=== PATIENT | female | born 1955 | race Caucasian/White ===

== ENCOUNTER → 2017-12-29 08:43 | Outpatient (POV) | payer BC, SELFPAY | PROVIDERS: Visit Provider Physician Assistant | DX: Z00.00 Encounter for general adult medical examination without abnormal findings (principal) ==

== ENCOUNTER → 2017-12-31 15:53 | Outpatient (CLI) | payer OTHER, SELFPAY ==
[2017-12-31 16:16] LABS: Basophils % 0.4 % (0.1-2.0); Eosinophils # 0.1 K/mm3 (0.0-0.4); Hematocrit 39.2 % (37.0-47.0); Hemoglobin 13.4 g/dL (12.2-16.2); Lymphocytes # 2.1 K/mm3 (0.7-4.5); Mean Corpuscular HGB Conc 34.2 g/dL (31.8-35.4); Mean Corpuscular Hemoglobin 29.5 pg (27.0-31.2); Mean Corpuscular Volume 86.1 fl (81-99); Mean Platelet Volume 8.8 fl (7.4-10.4); Monocytes # 0.3 K/mm3 (0.1-1.0); Monocytes % 4.6 % (1.7-9.3); Platelet Count 158 K/mm3 (142-424); Red Blood Count 4.56 M/mm3 (4.20-5.40); Red Cell Distribution Width 13.2 % (11.5-17.5); White Blood Count 6.6 K/mm3 (4.8-10.8)
--- NOTE | 2017-12-31 16:17 | XR_ITS ---
XR chest 2V HISTORY: ITS.REASON: HTN, ORDERING PHYSICIAN: Matias Cruz MD PATIENT AGE: 62 years COMPARISON: 03/05/2013 FINDINGS: Unremarkable cardiovascular structures. The right hemidiaphragm is elevated. No lobar consolidation or collapse. No acute bony anomalies. IMPRESSION: Elevated right hemidiaphragm, no change with no acute finding
[2017-12-31 19:32] LABS: Alanine Aminotransferase 116 U/L (12-78); Albumin/Globulin Ratio 1.3 (1.1-1.8); Alkaline Phosphatase 79 U/L (46-116); Aspartate Amino Transferase 93 U/L (15-37); Bilirubin,Total 0.7 mg/dL (0.2-1.0); Blood Urea Nitrogen 27 mg/dL (7-18); Calcium 9.8 mg/dL (8.5-10.1); Carbon Dioxide 25 mmol/L (21.0-32.0); Chloride 102 mmol/L (98-107); Creatinine,Serum 0.92 mg/dL (0.55-1.02); Estimated Glomerular Filt Rate 61 ml/min (>60); GFR (African American) 74 ML/MIN (>60); Globulin 3.2 gm/dl (1.3-3.2); Glucose 106 mg/dL (74-106); Sodium 137 mmol/L (136-145); Total Protein,Serum 7.2 gm/dL (6.4-8.2)
== END ==
PROVIDERS: Visit Provider Orthopaedic Surgery
DX: S82.032A Displaced transverse fracture of left patella, initial encounter for closed fracture (principal); S42.465A Nondisplaced fracture of medial condyle of left humerus, initial encounter for closed fracture; S62.619A Displaced fracture of proximal phalanx of unspecified finger, initial encounter for closed fracture; Z01.818 Encounter for other preprocedural examination
CPT/HCPCS: 36415; 71046; 80053; 85025; 93005

== ENCOUNTER → 2018-01-21 14:23 | Outpatient (CLI) | payer OTHER, SELFPAY ==
--- NOTE | 2018-01-21 14:27 | XR_ITS ---
XR knee LT 2V HISTORY: Follow-up fracture/ORIF ITS.REASON: 2 week post op LEFT PATELLA ORIF ORDERING PHYSICIAN: Matias Cruz MD PATIENT AGE: 62 years COMPARISON: None FINDINGS: Anterior bone plate is present over the patella with multiple screws stabilizing the previously noted transverse patellar fracture. There is good alignment with no significant displacement. There has been improvement in the distraction compared to the previous exam. IMPRESSION: Status post ORIF patellar fracture with good alignment and improvement in distraction
== END ==
PROVIDERS: PCP Family Medicine; Visit Provider Orthopaedic Surgery
DX: Z48.89 Encounter for other specified surgical aftercare (principal); S82.002A Unspecified fracture of left patella, initial encounter for closed fracture
CPT/HCPCS: 73560

== ENCOUNTER 2018-01-21 15:45 | Outpatient (RCR) | payer OTHER, SELFPAY | END 2018-01-22 08:27 | disposition home or self-care (01) | LOC: PT 15:45 | PROVIDERS: Visit Provider Orthopaedic Surgery | DX: S82.009A Unspecified fracture of unspecified patella, initial encounter for closed fracture (principal) | CPT/HCPCS: 97760 ==

== ENCOUNTER → 2018-02-04 14:20 | Outpatient (CLI) | payer OTHER, SELFPAY ==
--- NOTE | 2018-02-04 14:26 | XR_ITS ---
XR finger LT min 2V CLINICAL INDICATION: Follow-up fracture ITS.REASON: LT ring finger/ sp lt ring finger closed reduction ORDERING PHYSICIAN: Matias Cruz MD PATIENT AGE: 62 years Comparison: 12/31/2017 FINDINGS: There is comminuted fracture involving the proximal phalanx of the fourth finger nondisplaced. Fracture line is still visible along the radial aspect and proximally. There remains good alignment IMPRESSION: Overall no change nondisplaced comminuted fracture proximal phalanx fourth digit
== END ==
PROVIDERS: PCP Family Medicine; Visit Provider Orthopaedic Surgery
DX: S62.609A Fracture of unspecified phalanx of unspecified finger, initial encounter for closed fracture (principal); Z48.89 Encounter for other specified surgical aftercare
CPT/HCPCS: 73140

== ENCOUNTER → 2018-02-18 13:22 | Outpatient (CLI) | payer OTHER, SELFPAY ==
--- NOTE | 2018-02-18 13:26 | XR_ITS ---
XR knee LT 2V HISTORY: ITS.REASON: nonweightbearing/ sp ORIF lt patella 01/06/18 ORDERING PHYSICIAN: Matias Cruz MD PATIENT AGE: 62 years COMPARISON: 01/21/2018 FINDINGS: Status post ORIF patella with anterior bone plate with multiple screws in place. The fracture line of the patella is somewhat less apparent indicating healing. There are mild osteoarthritic changes of the medial compartment. IMPRESSION: Healing nondisplaced fracture of the patella status post ORIF
== END ==
PROVIDERS: PCP Family Medicine; Visit Provider Orthopaedic Surgery
DX: Z09 Encounter for follow-up examination after completed treatment for conditions other than malignant neoplasm (principal)
CPT/HCPCS: 73560

== ENCOUNTER → 2018-04-01 09:56 | Outpatient (CLI) | payer OTHER, SELFPAY ==
--- NOTE | 2018-04-01 10:00 | XR_ITS ---
XR knee LT 2V HISTORY: Follow-up fracture/ORIF ITS.REASON: sp ORIF left patella 01/06/18 ORDERING PHYSICIAN: Matias Cruz MD PATIENT AGE: 63 years COMPARISON: 02/18/2018 FINDINGS: Status post ORIF of the patella with a bone plate present anteriorly with good alignment of the fracture fragments and no significant distraction. Fracture line may be slightly less apparent than when compared to the previous exam. IMPRESSION: Status post ORIF patellar fracture with good alignment
--- NOTE | 2018-04-01 10:00 | XR_ITS ---
XR finger LT min 2V CLINICAL INDICATION: Follow-up fracture and closed reduction ITS.REASON: sp closed reduction 01/06/18 ORDERING PHYSICIAN: Matias Cruz MD PATIENT AGE: 63 years Comparison: 02/04/2018 FINDINGS: Comminuted fracture of the proximal phalanx of the ring finger is less apparent. There remains good alignment. IMPRESSION: Healing fracture proximal phalanx fourth digit with good alignment
== END ==
PROVIDERS: PCP Family Medicine; Visit Provider Orthopaedic Surgery
DX: S62.602A Fracture of unspecified phalanx of right middle finger, initial encounter for closed fracture (principal); S82.002A Unspecified fracture of left patella, initial encounter for closed fracture
CPT/HCPCS: 73140; 73560

== ENCOUNTER → 2018-04-16 08:20 | Outpatient (CLI) | payer OTHER, SELFPAY ==
--- NOTE | 2018-04-16 08:23 | XR_ITS ---
XR hip LT 2-3V w/pelvis HISTORY: ITS.REASON: left hip pain ORDERING PHYSICIAN: Matias Cruz MD PATIENT AGE: 63 years COMPARISON: None FINDINGS: No fracture or dislocation is evident. There is minimal osteophyte formation along the infra aspect of the acetabulum with slight decrease in joint space medially suggesting minimal osteoarthritic change. No lytic or blastic change. IMPRESSION: Minimal osteoarthritic change of the left hip
== END ==
PROVIDERS: PCP Family Medicine; Visit Provider Orthopaedic Surgery
DX: M70.62 Trochanteric bursitis, left hip (principal)
CPT/HCPCS: 73502

== ENCOUNTER → 2018-05-14 09:01 | Outpatient (CLI) | payer OTHER, SELFPAY ==
--- NOTE | 2018-05-14 09:03 | XR_ITS ---
XR knee LT 4V HISTORY: Follow-up ORIF with pain ITS.REASON: sp orif LEFT patella dos 01/06 ORDERING PHYSICIAN: Matias Cruz MD PATIENT AGE: 63 years COMPARISON: 04/01/2018 FINDINGS: Bone plate remains along the anterior aspect of the patella with multiple stabilizing screws which are not significant change compared to the previous exam. Fracture line is still visible. There is a suprapatellar effusion. Fracture fragments are in good alignment. IMPRESSION: Overall no significant change status post ORIF patellar fracture with good alignment with persistent fracture line noted
== END ==
PROVIDERS: PCP Family Medicine; Visit Provider Orthopaedic Surgery
DX: Z09 Encounter for follow-up examination after completed treatment for conditions other than malignant neoplasm (principal); M25.562 Pain in left knee
CPT/HCPCS: 73564

== ENCOUNTER → 2019-02-16 10:24 | Outpatient (POV) | payer SELFPAY | PROVIDERS: Visit Provider Dermatology | DX: Z00.00 Encounter for general adult medical examination without abnormal findings (principal) ==

== ENCOUNTER → 2020-02-29 09:21 | Outpatient (POV) | payer SELFPAY | PROVIDERS: PCP Family Medicine; Visit Provider Dermatology | DX: Z00.00 Encounter for general adult medical examination without abnormal findings (principal) ==

== ENCOUNTER 2023-11-25 10:46 | Outpatient (RCR) | payer MEDICARE, SELFPAY | END 2023-11-25 10:50 | disposition home or self-care (01) | LOC: PT 10:46 | PROVIDERS: Visit Provider Orthopaedic Surgery | DX: M76.892 Other specified enthesopathies of left lower limb, excluding foot (principal); Z96.652 Presence of left artificial knee joint | CPT/HCPCS: 97010; 97014; 97110; 97163; G0283 ==

== ENCOUNTER 2024-02-24 11:21 | Outpatient (POV) | payer MEDICARE, SELFPAY | END 2024-02-24 23:59 | disposition home or self-care (01) | LOC: SC 11:22 | PROVIDERS: PCP Family Medicine; Visit Provider Dermatology | DX: Z00.00 Encounter for general adult medical examination without abnormal findings (principal) ==